=== PATIENT | female | born 1975 | race Caucasian/White ===

== ENCOUNTER → 2020-01-05 | Outpatient (CLI) | payer MEDICAID, SELFPAY ==
[2020-01-05 20:34] LABS: Chlamydia Trachomatis by PCR Negative (Negative); Neisserai gonorrhoeae by PCR Negative (Negative); Probe Check PASS; Sample Adequacy Control PASS; Specimen Processing Control PASS
[2020-01-10 15:39] LABS: HPV Reflexed? NOT INDICATED
== END | disposition home or self-care (01) ==
PROVIDERS: Referring Provider Obstetrics & Gynecology; Visit Provider Obstetrics & Gynecology
DX: Z12.4 Encounter for screening for malignant neoplasm of cervix (principal); Z11.3 Encounter for screening for infections with a predominantly sexual mode of transmission
CPT/HCPCS: 87491; 87591; 88175; G0145

== ENCOUNTER → 2021-07-11 16:12 | Outpatient (CLI) | payer BC, MEDICAID, SELFPAY ==
[2021-07-11 17:23] LABS: hCG Titer Quant., Serum 52 mIU/mL (1-3)
== END ==
PROVIDERS: Visit Provider Obstetrics & Gynecology
DX: R30.0 Dysuria (principal); N91.2 Amenorrhea, unspecified
CPT/HCPCS: 36415; 84702; 87086; 87088; 87186

== ENCOUNTER 2021-07-15 09:04 | Outpatient (CLI) | payer BC, MEDICAID, SELFPAY ==
[2021-07-15 10:07] LABS: hCG Titer Quant., Serum 219 mIU/mL (1-3)
== END 2021-07-15 23:59 | disposition home or self-care (01) ==
LOC: WOBLAB 09:05
PROVIDERS: Visit Provider Obstetrics & Gynecology
DX: R30.0 Dysuria (principal); N91.2 Amenorrhea, unspecified
CPT/HCPCS: 36415; 84702

== ENCOUNTER 2021-07-26 11:19 | Outpatient (CLI) | payer BC, MEDICAID, SELFPAY ==
[2021-07-26 12:11] LABS: hCG Titer Quant., Serum 995 mIU/mL (1-3)
== END 2021-07-26 23:59 | disposition short-term general hospital (02) ==
PROVIDERS: Visit Provider Obstetrics & Gynecology
DX: O20.0 Threatened abortion (principal); Z3A.00 Weeks of gestation of pregnancy not specified
CPT/HCPCS: 36415; 84702

== ENCOUNTER 2021-07-29 14:46 | Outpatient (CLI) | payer BC, MEDICAID, SELFPAY ==
[2021-07-29 16:33] LABS: hCG Titer Quant., Serum 208 mIU/mL (1-3)
== END 2021-07-29 23:59 | disposition short-term general hospital (02) ==
PROVIDERS: Visit Provider Obstetrics & Gynecology
DX: O20.0 Threatened abortion (principal); N91.2 Amenorrhea, unspecified; Z3A.00 Weeks of gestation of pregnancy not specified
CPT/HCPCS: 36415; 84702

== ENCOUNTER 2021-09-23 08:12 | Emergency (ER) | payer BC, MEDICAID, SELFPAY ==
[2021-09-23 08:14] VITALS: BP 142/100; PULSE 114; RESP 17; TEMP 36.1; O2SAT 96; BMI 22.8
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
[2021-09-23 09:22] VITALS: BP 119/90; PULSE 106; RESP 12; O2SAT 96
[2021-09-23 09:25] LABS: Absolute Lymphocyte Count 1.21 X10^3/uL (0.83-4.51); Absolute Neutrophil Count 4.8 X10^3/uL (2.0-7.7); Basophil# 0.04 X10^3/uL; Basophil% 0.6 % (0-1); Eosinophil# 0.07 X10^3/uL; Eosinophils% 1.1 % (0-5); Hematocrit 42.8 % (37-47); Hemoglobin 14.2 g/dL (12.0-15.0); Lymphocyte # 1.21 X10^3/ul (0.83-4.51); Lymphocyte % 18.2 % (19-41); Mean Corp Hgb Conc 33.2 g/dL (32-36); Mean Corpuscular Hgb 31.1 pg (27.0-32.0); Mean Corpuscular Volume 93.9 fL (81-99); Mean Platelet Vol. 9.4 fl (6.2-12.0); Monocyte# 0.53 X10^3/uL; NRBC Flagged by Analyzer 0 % (0-5); Neutrophil # 4.78 X10^3/uL (2.7-7.7); Neutrophil % 71.8 % (47-70); Platelet Count 305 K/mm3 (150-450); RBC Distribution Width CV 12.3 % (11.6-14.6); RBC Distribution Width SD 43.1 fl (35.1-43.9); Red Blood Count 4.56 M/mm3 (4.2-5.4); White Blood Count 6.7 K/mm3 (4.4-11.0)
--- NOTE | 2021-09-23 09:25 | RAD_ITS ---
INDICATION: Injury/Pain EXAMINATION/TECHNIQUE: X-RAY - RIGHT HAND XR Fingers Min 2 Views 3 VIEWS COMPARISON: None. FINDINGS: No acute fracture or subluxation. Joint spaces are intact. Soft tissues are unremarkable. No radiopaque foreign bodies. RAD/Finger(s) Min 2 Views IMPRESSION: No acute findings. Electronically Signed: Zackery Méndez, at 9:49 EDT ,
--- NOTE | 2021-09-23 09:25 | RAD_ITS ---
INDICATION: Chest pain EXAMINATION/TECHNIQUE: X-RAY - XR Chest 1 View COMPARISON: 09/29/2012 FINDINGS: Support devices: None No focal consolidations, effusions, or sizable pneumothorax. Cardiomediastinal silhouette is within normal limits. No acute findings in the bones or soft tissues. Stable right-sided remote rib fractures. RAD/Chest 1 View (Portable) IMPRESSION: No acute findings. Electronically Signed: Zackery Méndez, at 9:47 EDT ,
[2021-09-23 09:43] LABS: Anion Gap 6 (5-15); BUN 6 mg/dL (7-18); Calcium,Total 9.3 mg/dL (8.5-10.1); Chloride 107 mmol/L (98-107); Creatinine, Serum 0.86 mg/dL (0.55-1.02); EST Glomerular Filtration Rate 76 mL/min (>60); Est Glom Filt Rate - Afr Amer 92 mL/min (>60); Estimated Creatinine Clearance 80.33 ml/min; Glucose 124 mg/dL (74-106); Potassium 3.8 mmol/L (3.5-5.1); Sodium Level 139 mmol/L (136-145); Troponin-I HS 5 pg/mL (3.0-54.0)
[2021-09-23 10:06] LABS: Internal QC Validated? YES +Cl - CLEAR BKGD; Pregnancy, Serum, hCG Quali. NEGATIVE Negative
[2021-09-23 11:10] VITALS: BP 135/72; PULSE 84; RESP 14; TEMP 36.3; O2SAT 99
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
== END 2021-09-23 11:12 | disposition home or self-care (01) ==
PROVIDERS: Emergency Provider Emergency Medicine; PCP Family Medicine; Visit Provider Emergency Medicine
DX: R07.9 Chest pain, unspecified (principal); Z87.891 Personal history of nicotine dependence; F41.9 Anxiety disorder, unspecified; S63.621A Sprain of interphalangeal joint of right thumb, initial encounter; Y04.8XXA Assault by other bodily force, initial encounter
CPT/HCPCS: 71045; 73140; 80048; 84484; 84703; 85025; 93005; 96360; 99284

== ENCOUNTER 2024-08-24 07:22 | Emergency (ER) | payer BC, SELFPAY ==
[2024-08-24 07:23] VITALS: BP 148/106; PULSE 106; RESP 18; TEMP 36.4; O2SAT 100; BMI 26.6
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
== END 2024-08-24 08:22 | disposition home or self-care (01) ==
PROVIDERS: Emergency Provider Emergency Medicine; PCP Family Medicine; Visit Provider Emergency Medicine
DX: S80.12XA Contusion of left lower leg, initial encounter (principal); E78.00 Pure hypercholesterolemia, unspecified; I10 Essential (primary) hypertension; F17.210 Nicotine dependence, cigarettes, uncomplicated; F12.90 Cannabis use, unspecified, uncomplicated; W54.1XXA Struck by dog, initial encounter; I83.92 Asymptomatic varicose veins of left lower extremity
CPT/HCPCS: 99282